=== PATIENT | male | born 2000 | race Caucasian/White ===

== ENCOUNTER 2025-02-05 09:12 | Inpatient (IN) | payer OTHER ==
[2025-02-05 09:39] VITALS: BMI 26.9
[2025-02-05] MEDS ORDERED: chlordiazePOXIDE HCL 25 MG CAPSULE PO PRN (09:51)
[2025-02-05] MEDS ORDERED: MAG HYDROX/AL HYDROX/SIMETH 30 ML UNIT-DOSE CUP PO PRN (09:54)
[2025-02-05] MEDS ORDERED: BENZOCAINE/MENTHOL (CHLORASEPTIC ) LOZENGE MM PRN (09:54)
[2025-02-05] MEDS ORDERED: DICYCLOMINE HCL 10 MG CAPSULE PO PRN (09:54)
[2025-02-05] MEDS ORDERED: LOPERAMIDE HCL 2 MG CAPSULE PO PRN (09:54)
[2025-02-05] MEDS ORDERED: BENZONATATE 200 MG CAPSULE PO PRN (09:54)
[2025-02-05] MEDS ORDERED: IBUPROFEN 600 MG TABLET (FP) PO PRN (09:54)
[2025-02-05] MEDS ORDERED: NALOXONE (NARCAN) HCL 4 MG/0.1 ML SPRAY NS PRN (09:54)
[2025-02-05] MEDS ORDERED: IBUPROFEN 400 MG TABLET (FP) PO PRN (09:54)
[2025-02-05] MEDS ORDERED: ONDANSETRON *ODT* 4 MG TABLET SL PRN (09:54)
[2025-02-05] MEDS ORDERED: POLYETHYLENE GLYCOL (HEALTHYLAX) 3350 17 GM PACKET PO PRN (09:54)
[2025-02-05] MEDS ORDERED: MAGNESIUM HYDROX 2400MG/30ML ORAL SUSPENSION 30 ML CUP PO PRN (09:54)
[2025-02-05] MEDS ORDERED: BISMUTH SUBSALICYLATE 524 MG/30 ML PO PRN (09:54)
[2025-02-05] MEDS ORDERED: guaiFENesin 600 MG TABLET.ER (FP) PO PRN (09:54)
[2025-02-05] MEDS ORDERED: ACETAMINOPHEN 325 MG TABLET (FP) PO PRN (09:54)
[2025-02-05] MEDS ORDERED: chlordiazePOXIDE HCL 25 MG CAPSULE ONE (10:29)
[2025-02-05] MEDS ORDERED: levETIRAcetam 500 MG TABLET (FP) PO ONE (10:30)
[2025-02-05] MEDS ORDERED: PRENATAL VITAMINS W/ FOLIC ACID TABLET (FP) PO ONE (10:30)
[2025-02-05] MEDS: chlordiazePOXIDE HCL 25 MG CAPSULE PO SCH (10:33)
[2025-02-05] MEDS: PRENATAL VITAMINS W/ FOLIC ACID TABLET (FP) PO SCH (10:33)
[2025-02-05] MEDS: levETIRAcetam 500 MG TABLET (FP) PO SCH (10:33)
[2025-02-05] MEDS: THIAMINE 100 MG TABLET PO SCH (22:40)
[2025-02-05] MEDS: MELATONIN 5 MG TABLETS PO SCH (22:40)
[2025-02-06 06:56] VITALS: RESP 16
[2025-02-06 12:09] LABS: HEMATOCRIT 41.7 % (40.1-51.0); HEMOGLOBIN 13.7 g/dL (13.7-17.5); MCHC 32.9 g/dl (32.3-36.5); MEAN PLT VOLUME 9.8 fl (9.4-12.4); PLATELET COUNT 309 x10^3/uL (163-337); RDW 15.1 % (11.9-15.3)
[2025-02-06 12:26] LABS: BLOOD UREA NITROGEN 16.8 mg/dL (7-18); CALCIUM 9.4 mg/dL (8.5-10.1)
[2025-02-06 12:30] LABS: CREATININE 0.8 mg/dL (0.55-1.3)
[2025-02-06 12:31] LABS: BILIRUBIN,TOTAL 0.6 mg/dL (0.2-1); TOT PROT 7.3 g/dl (6.4-8.2)
[2025-02-06] MEDS: chlordiazePOXIDE HCL 25 MG CAPSULE PO SCH (17:56)
[2025-02-06] MEDS: QUEtiapine FUMARATE 100 MG TABLET (FP) PO SCH (22:14)
[2025-02-07] MEDS ORDERED: chlordiazePOXIDE HCL 25 MG CAPSULE PO SCH (05:00)
[2025-02-07] MEDS: chlordiazePOXIDE HCL 25 MG CAPSULE PO SCH (05:49)
[2025-02-07] MEDS: chlordiazePOXIDE HCL 10 MG CAPSULE PO SCH (10:46)
[2025-02-07] MEDS: METHOCARBAMOL 500 MG TABLET PO PRN (10:46)
[2025-02-08] MEDS ORDERED: chlordiazePOXIDE HCL 10 MG CAPSULE PO PRN
[2025-02-08] MEDS ORDERED: chlordiazePOXIDE HCL 10 MG CAPSULE PO SCH ×2 (05:00)
[2025-02-08 06:54] VITALS: BP 103/62; PULSE 63; TEMP 97.7
[2025-02-09] MEDS ORDERED: chlordiazePOXIDE HCL 10 MG CAPSULE PO ONE (05:00)
[2025-02-09] MEDS ORDERED: chlordiazePOXIDE HCL 10 MG CAPSULE PO SCH (05:00)
[2025-02-10] MEDS ORDERED: chlordiazePOXIDE HCL 10 MG CAPSULE PO ONE (05:00)
== END 2025-02-08 09:27 | disposition home or self-care (01) | DRG 775 ==
LOC: YASAS 09:12 → Y6N 10:29
PROVIDERS: ADMIT Allergy & Immunology; ATTEND Allergy & Immunology
PROC: HZ2ZZZZ Detoxification Services for Substance Abuse Treatment (ICD-10-PCS; principal; 2025-02-05)
DX: F10.230 Alcohol dependence with withdrawal, uncomplicated (principal); F12.20 Cannabis dependence, uncomplicated; F17.210 Nicotine dependence, cigarettes, uncomplicated; F43.10 Post-traumatic stress disorder, unspecified; G47.00 Insomnia, unspecified; Z86.59 Personal history of other mental and behavioral disorders; Z86.69 Personal history of other diseases of the nervous system and sense organs
CPT/HCPCS: 36415; 80053; 80305; 80307; 85027; 86780; 93005; 93010